=== PATIENT | female | born 2000 | race Caucasian/White ===

== ENCOUNTER 2021-05-14 13:30 | Emergency (ER) | payer BC, OTHER ==
[~2021-05-14] VITALS: Ht 165.1 cm; Wt 63.5 kg
[2021-05-14] MEDS ORDERED: LIDOCAINE HCL 1% 20 ML VIAL IJ ONE (15:00)
[2021-05-14] MEDS ORDERED: LIDOCAINE HCL 1% 20 ML VIAL ONE (15:03)
[2021-05-14] MEDS ORDERED: CIPR-262 PO (15:47)
--- NOTE | 2021-05-14 16:06 | NUR ---
Patient discharged to home in stable condition. Written and verbal after care instructions given. Patient verbalizes understanding of instructions. Stressed follow up or return to ER for worsening s/s.
== END 2021-05-14 16:06 | disposition home or self-care (01) ==
LOC: ER 13:30
DX: H61.011 Acute perichondritis of right external ear (principal)
CPT/HCPCS: 99284; J3490; A4663